=== PATIENT | male | born 1990 | race African-American/Black ===

== ENCOUNTER 2021-09-20 05:24 | Day surgery (SDC) | payer OTHER ==
[2021-09-19 13:10] VITALS: BMI 22.4
[2021-09-20] MEDS ORDERED: KETOROLAC TROMETHAMINE 30 MG/1 ML VIAL ONE (10:35)
[2021-09-20] MEDS ORDERED: MIDAZOLAM HCL 2 MG/2 ML SINGLE DOSE VIAL ONE ×2 (10:35→11:08)
[2021-09-20 12:38] VITALS: BP 119/85; PULSE 73; TEMP 97.6
== END 2021-09-20 13:16 | disposition home or self-care (01) ==
LOC: JASU-SURG 05:24
PROVIDERS: ATTEND Urology
PROC: 0TF4XZZ Fragmentation in Left Kidney Pelvis, External Approach (ICD-10-PCS; principal; 2021-09-20 10:30)
DX: N20.0 Calculus of kidney (principal)